=== PATIENT | female | born 1995 | race Caucasian/White ===

== ENCOUNTER 2018-08-12 20:37 | Emergency (ER) | payer OTHER ==
[~2018-08-12] VITALS: Ht 167.6 cm; Wt 99.8 kg
[2018-08-12 22:03] LABS: BILIRUBIN NEGATIVE (NEGATIVE); BLOOD NEGATIVE (NEGATIVE); CLARITY SL CLOUDY (CLEAR); GLUCOSE NEGATIVE (NEGATIVE); KETONE NEGATIVE (NEGATIVE); LEUKO ESTERASE NEGATIVE (NEGATIVE); NITRITE NEGATIVE (NEGATIVE); UROBILINOGEN 0.2 E.U./dl (0.2-1.0)
[2018-08-12 22:07] LABS: COLOR YELLOW (YELLOW)
[2018-08-12 22:08] LABS: BACTERIA 1+; MUCOUS 1+; WBC 0-2 wbc/hpf (0-5)
[2018-08-12] MEDS ORDERED: AUGMENTIN 875875 MG PO (22:32)
== END 2018-08-12 23:32 | disposition home or self-care (01) ==
LOC: ED 20:37
PROVIDERS: Student in an Organized Health Care Education/Training Program
DX: J32.9 Chronic sinusitis, unspecified (principal)

== ENCOUNTER 2018-09-16 11:58 | Emergency (ER) | payer OTHER ==
[~2018-09-16] VITALS: Ht 167.6 cm; Wt 113.4 kg
[~2018-09-16 11:58] MED LIST: AUGMENTIN 875875 MG PO
[2018-09-16] MEDS ORDERED: Motrin,Rufen800 MG PO (13:11)
== END 2018-09-16 14:50 | disposition home or self-care (01) ==
LOC: ED 11:58
DX: S32.2XXA Fracture of coccyx, initial encounter for closed fracture (principal); Z79.2 Long term (current) use of antibiotics; W10.9XXA Fall (on) (from) unspecified stairs and steps, initial encounter; Y93.89 Activity, other specified; Y92.89 Other specified places as the place of occurrence of the external cause; Y99.8 Other external cause status